=== PATIENT | female | born 1955 | race Caucasian/White ===

== ENCOUNTER 2016-07-31 16:41 | Emergency (ER) | payer OTHER ==
[2016-04-22 10:22] VITALS: BMI 35.1
[~2016-07-31 16:41] MED LIST: BUPROPION HCL150 M1 PO; KLOR-CON 1010 MEQ PO; LASIX40 MG PO; PHENERGAN25 M1 PO; ZESTORETIC 10/11 TAB PO; ZOFRAN8 MG PO
== END 2016-07-31 20:11 | disposition left against medical advice (07) ==
LOC: D.ER 16:41
DX: M79.641 Pain in right hand (principal)

== ENCOUNTER 2019-07-05 07:59 | Inpatient (IN) | payer OTHER ==
[~2019-07-05] VITALS: Ht 149.9 cm; Wt 92.3 kg
--- NOTE | ~2019-07-05 | HEMODYNAMI ---
PATIENT:REAGAN MCKENZIE MEDICAL RECORD: [id number] : 59 LOCATION:[facility] ADMISSION DATE: 07/05/19 Generatedon:07/05/201910:22 Patient name: REAGAN MCKENZIE Patient #: [id number] : 1955 Date of study: 07/05/2019 Page: Of Hemodynamic Procedure Report Patient Data Patient Demographics First Name: REAGAN Gender: Female Last Name: JONAH : 1955 Middle Initial: ERICK Age: 63 year(s) Patient #: [id number] Race: Unknown SSN: [id number] Additional ID: [id number] Contact details [address]: [address] [place] [address] State: [place] City: [place] Zip code: [address] Past Medical History Allergies Allergen Reaction Date Comments Reported Other allergy 07/05/2019 chantix, tramadol Admission Admission Data Admission Date: 07/05/2019 Admission Time: 7:59 Arrival Date: 07/05/2019 Arrival Time: 0:00 Admit Source: Other Insurance Payor: Private health insurance [facility] #: [id number] Height (in.): 59 BSA: 1.87 (m2) Height (cm.): 149.86 BMI: 42.01 (kg/m2) Weight (lbs.): 208 Weight (kg.): 94.35 Lab Results Lab Result Date: 07/05/2019 Lab Result Time: 0:00 Biochemistry Name Units Result Min Max BUN mg/dl 28 --(----)-* 7 18 Creatinine mg/dl 1.2 --(---*)-- 0.6 1.3 eGFR ml/min 48 *-(----)-- 90 120 NONAFRICAN CBC Name Units Result Min Max Hemoglobin g/dl 13.8 --(*---)-- 13.5 17.5 Procedure Procedure Types Cath Procedure Diagnostic Procedure LHC LHC w/Coronaries FFR/IVUS FFR Initial Sedation Charges Moderate Sedation up to 30 minutes PCI Procedure Coronary Stent Coronary Stent Initial x2 Hemochron ACT Test Procedure Description Procedure Date Procedure Date: 07/05/2019 Procedure Start Time: 9:54 Procedure End Time: 10:17 Procedure Staff Name Function Jonel Garcia MD Performing Physician Binta Cohen RT Monitor Talia Ryan RT Scrub Aren Sainz RN Nurse Indication Chest pain Procedure Data Cath Procedure Fluoroscopy Diagnostic fluoroscopy Total fluoroscopy Time: 4.6 time: 4.6 min min Diagnostic fluoroscopy Total fluoroscopy dose: 913 dose: 913 mGy mGy Contrast Material Contrast Material Type Amount (ml) Isovue 300 101 Entry Location Entry Primary Successful Side Size Upsize Upsize Entry Closure Succes sful Closure Location (Fr) 1 (Fr) 2 (Fr) Remarks Device Remarks Femoral Right 5 Fr 7 Fr Exoseal artery Short Estimated blood loss: 10 ml Diagnostic catheters Device Type Used For End Catheter Placement MULTIPACK Pigtail 5 Fr Procedure catheter MULTIPACK JL 4.0 5Fr Procedure catheter MULTIPACK 3DRC 5Fr Procedure catheter Procedure Complications No complications Procedure Medications Medication Administration Route Dosage Oxygen etCO2 Nasal cannula 2 l/min Lidocaine 2% added to field 20 Heparin Flush Bag added to field 2 bags (1000units/500ml NS) 0.9% NaCl I.V. bolus 500 ml Versed I.V. 1 mg Fentanyl I.V. 50 mcg Versed I.V. 1 mg Fentanyl I.V. 50 mcg Heparin Bolus I.V. 4000 units Integrilin (Bolus I.V. 8.5 ml 2mg/ml) Plavix P.O. 600 mg 0.9% NaCl I.V. bolus 250 ml Hemodynamics Rest BSA: 1.87 (m2) HGB: 13.8 (g/dl) O2 Consumption: Estimated: 165.24 (ml/min) O2 Co nsumption indexed: Estimated:88.36 (ml/min/m) Heart Rate: 54 (bpm) Gradients Valve Time Site Site Mean SEP/DFP Peak To Heart Use 1 2 (mmHg) (sec/min) Peak Rate (mmHg) (bpm) Aortic 9:56 LV AO 60 Snapshots Pre Cath Intra NCS Post Cath Vital Signs Time Heart Resp SPO2 etCO2 NIBP Rhythm Pain Sedation Rate (ipm) (%) (mmHg) (mmHg) Status Level (bpm) 9:41:35 55 12 95 36.2 99/65(78) NSR 0 (11) 10(A) , No pain 9:44:41 54 17 97 3.7 102/66(84) NSR 0 (11) 10(A) , No pain 9:48:39 54 14 97 19 100/64(79) NSR 0 (11) 10(A) , No pain 9:52:38 55 15 98 34.7 97/57(73) NSR 0 (11) 9(A) , No pain 9:56:40 53 12 99 0 98/52(77) NSR 0 (11) 9(A) , No pain 10:00:44 54 13 97 27.2 93/45(79) NSR 0 (11) 9(A) , No pain 10:04:46 53 11 97 43 80/46(66) NSR 0 (11) 9(A) , No pain 10:08:43 55 12 98 43.1 81/42(60) NSR 0 (11) 9(A) , No pain 10:12:41 56 4 98 0 96/44(70) NSR 0 (11) 9(A) , No pain 10:17:23 61 21 98 43.8 114/71(90) NSR 0 (11) 10(A) , No pain Medications Time Medication Route Dose Verified Delivered Reason Notes Effectiveness by by 9:31:50 Oxygen etCO2 2 Jonel Buffie used for Nasal l/min Jose Sainz RN procedure cannula 9:31:56 Lidocaine 2% added 20ml Jonel Remy for local to vial Jose Garcia MD anesthetic field 9:32:02 Heparin Flush added 2 Jonel Jonel used for Bag to bags Jose Garcia MD procedure (1000units/500ml field NS) 9:32:11 0.9% NaCl I.V. 500 Jonel Buffie Per physician bolus ml Jose Sainz RN 9:49:58 Versed I.V. 1 mg Jonel Buffie for sedation Jose Sainz RN 9:50:04 Fentanyl I.V. 50 Jonel Buffie for sedation mcg Jose Sainz RN 9:54:50 Versed I.V. 1 mg Jonel Buffie for sedation Jose Sainz RN 9:54:53 Fentanyl I.V. 50 Jonel Buffie for sedation mcg Jose Sainz RN 10:02:27 Heparin Bolus I.V. 4000 Jonel Younger for verif ied units Jose Sainz RN anticoagulation with dr garcia 10:05:27 Integrilin I.V. 8.5 Jonel Younger for waste d (Bolus 2mg/ml) ml Jose Sainz RN antiplatelet 1.5 ml therapy of vial 10:17:21 Plavix P.O. 600 Jonel Younger for mg Jose Sainz RN antiplatelet therapy 10:17:49 0.9% NaCl I.V. 250 Jonel Younger Per physician bolus ml Jose Sainz RN Procedure Log Time Note 8:59:33 Admit Source: Other 8:59:35 Arrival Date: 07/05/2019 12:00:00 AM 8:59:51 Insurance Payor : Private health insurance 9:00:05 Patient Height : 59 inches 9:00:08 Patient Weight : 208 lbs 9:00:21 Diagnostic Cath Status : Elective 9:00:25 PCI Cath Status : Elective 9:01:03 Indication : Chest pain 9:01:19 Procedure Status Elective Heart Cath (OP). 9:31:50 Oxygen 2 l/min etCO2 Nasal cannula was administered by Aren Sainz RN; used for procedure; Verbal order read back and verified. 9:31:56 Lidocaine 2% 20ml vial added to field was administered by Jonel Garcia MD; for local anesthetic; Verbal order read back and verified. 9:32:02 Heparin Flush Bag (1000units/500ml NS) 2 bags added to field was administered by Jonel Garcia MD; used for procedure; Verbal order read back and verified. 9:32:11 0.9% NaCl 500 ml I.V. bolus was administered by Aren Sainz RN; Per physician; Verbal order read back and verified. 9:34:00 Vital chart was started 9:35:10 Aren Sainz RN sent for patient. Start room use. 9:35:12 Time tracking: Regular hours (M-F 7:00 - 5:00) 9:35:19 Plan of Care:Hemodynamics will remain stable., Cardiac rhythm will remain stable., Comfort level will be maintained., Respiratory function will remain adequate., Patient/ family verbilizes understanding of procedure., Procedure tolerated without complication., Recovers from procedure without complications.. 9:35:24 Patient received from Pre/Post Procedure Room to CCL 2 Alert and oriented. Tansferred to table in Supine position. 9:35:25 Warm blankets applied, and teja hugger turned on for patient comfort. 9:35:25 Correct patient and procedure confirmed by team. 9:35:26 ECG and BP/O2 sat monitors applied to patient. 9:35:27 Baseline sample Acquired. 9:35:35 Rhythm: sinus rhythm 9:35:37 Full Disclosure recording started 9:36:01 H&P Date Dictated: 06/14/2019 Within 30 days and on chart., H&P Addendum completed by physician on day of procedure. (MUST COMPLETE FOR ALL OUTPATIENTS). 9:36:02 Pre-procedure instructions explained to patient. 9:36:04 Family in waiting room. 9:36:05 Patient NPO since Midnight. 9:36:45 Patient allergic to Other allergychantix, tramadol 9:36:51 Is the patient allergic to Iodine/contrast media? No. 9:36:52 Was the patient premedicated? Yes 9:36:54 Is patient on blood thinner?No 9:37:04 Patient diabetic? No. 9:37:09 Snore? Yes 9:37:10 Sleep apnea? No 9:37:18 Dentures? No ? 9:37:22 Patient pain scale 0/10 ?. 9:37:28 IV patent on arrival in left forearm with 0.9% NaCl at KVO. 9:40:10 Lab Result : eGFR NONAFRICAN 48 ml/min 9:40:10 Lab Result : Hemoglobin 13.8 g/dl 9:40:10 Lab Result : BUN 28 mg/dl 9:40:10 Lab Result : Creatinine 1.2 mg/dl 9:40:25 3a) 45-59 Moderately reduced kidney function. 9:41:01 Maximum allowable contrast dose (3.7 X eGFR X 0.75)133 ml. 9:41:17 Lab results completed and on chart. 9:41:42 Stress Test: yes; abnormal multi 9:41:57 Right groin area was prepped with chlora-prep and draped in sterile fashion 9:41:58 Alarms reviewed by R. N. 9:41:58 Sharps counted by scrub and verified by R.N. 9:48:56 Physician arrived 9:48:57 --------ALL STOP TIME OUT------ 9:48:58 Final Timeout: patient, procedure, and site verified with staff and physician. All members of the team are in agreement. 9:48:59 Right groin site verified by team. 9:49:03 Fire Safety Assessment: A--An alcohol-based skin anteseptic being used preoperatively., C--Open oxygen or nitrous oxide is being used., D--An ESU, laser, or fiber-optic light is being used. 9:49:08 Physical assessment completed. ASA score P 3 - A patient with severe systemic disease as per Jonel Garcia MD. 9:49:14 Sedation plan: IV Moderate Sedation Medication:Versed, Fentanyl 9:49:19 Use device set Femoral Dx 9:49:58 Versed 1 mg I.V. was administered by Aren Sainz RN; for sedation; Verbal order read back and verified. 9:50:04 Fentanyl 50 mcg I.V. was administered by Aren Sainz RN; for sedation; Verbal order read back and verified. 9:51:04 Zero performed for pressure channel P1 9:51:09 Zero performed for pressure channel P1 9:54:26 Procedure started. 9:54:40 Local anesthetic to right femoral artery with Lidocaine 2% by Jonel Garcia MD.INITIAL ACCESS ONLY 9:54:41 ACIST Syringe (22757) opened to sterile field. 9:54:42 Bag Decanter (2002) opened to sterile field. 9:54:42 Medline Cath Pack ([id number]) opened to sterile field. 9:54:44 ACIST Hand Control (35220) opened to sterile field. 9:54:44 ACIST Manifold (23754) opened to sterile field. 9:54:44 DIAGNOSTIC Multipack 5Fr catheter set ([id number]) opened to sterile field. 9:54:47 SHEATH 5FR [place] (RTO173) opened to sterile field. 9:54:47 EMERALD Guide Wire (502-604) opened to sterile field. 9:54:50 Versed 1 mg I.V. was administered by Aren Sainz RN; for sedation; Verbal order read back and verified. 9:54:53 Fentanyl 50 mcg I.V. was administered by Aren Sainz RN; for sedation; Verbal order read back and verified. 9:55:14 A 5 Fr sheath was inserted into the Right Femoral artery 9:55:22 A MULTIPACK Pigtail 5 Fr catheter was advanced over the wire and used for Procedure. 9:56:25 EF : 60 % 9:56:29 LV angiography performed. 9:56:30 Catheter removed. 9:56:37 A MULTIPACK JL 4.0 5Fr catheter was advanced over the wire and used for Procedure. 9:56:49 LCA angiography performed. 9:57:43 Catheter removed. 9:57:54 A MULTIPACK 3DRC 5Fr catheter was advanced over the wire and used for Procedure. 9:58:17 RCA angiography performed. 9:59:15 GUIDE 7FR AR 2.0 SH catheter ([id number]) opened to sterile field. 9:59:16 SHEATH 7FR [place] (LZR213) opened to sterile field. 9:59:18 INFLATOR Merit BasixCompak (HM0677) opened to sterile field. 9:59:19 [place] Verrata Plus pressure wire (96039Y) opened to sterile field. 9:59:35 Catheter removed. 9:59:36 Proceeding to intervention. 9:59:48 Sheath upsized to a 7 Fr Short. 10:00:00 7 Fr AR2SH guide catheter was inserted over the wire 10:00:52 ifr wire advanced. 10:01:10 Wire advanced across lesion. 10:02:27 Heparin Bolus 4000 units I.V. was administered by Aren Sainz RN; for anticoagulation; verified with dr garcia Verbal order read back and verified. 10:02:39 pRCA lesion measured at .81 with IFR 10:05:10 Place stent Inflation Number: 1 A MYLES RX 3.0 x 30 stent ([id number]) was prepped and advanced across the Prox RCA 75. The stent was deployed at 17 YEN for 0:07 (min:sec) 0. 10:05:27 Integrilin (Bolus 2mg/ml) 8.5 ml I.V. was administered by Aren Sainz RN; for antiplatelet therapy; wasted 1.5 ml of vial Verbal order read back and verified. 10:05:44 Wire removed. 10:05:44 Guide catheter removed. 10:05:59 7 Fr EBU3.5 guide catheter was inserted over the wire 10:06:18 CHOICE PT Extra Support 182cm wire ([id number]) opened to sterile field. 10:07:02 GUIDE 7FR EBU 3.5 catheter ([id number]) opened to sterile field. 10:07:09 Wire advanced across lesion. 10:08:47 Inflate balloon Inflation number: 1 A EUPHORA 2.0 x 20 Balloon ([id number]) was prepped and advanced across the Mid LAD , then inflated to 15 YEN for 0:11 (min:sec) . 10:08:55 Inflation number: 2 The EUPHORA 2.0 x 20 Balloon ([id number]) was reinflated across the Mid LAD , to 17 YEN for 0:05 (min:sec) . 10:09:59 Balloon removed over the wire. 10:10:17 Place stent Inflation Number: 3 A MYLES RX 2.0 x 26 stent ([id number]) was prepped and advanced across the Mid LAD 90. The stent was deployed at 15 YEN for 0:09 (min:sec) . 10:11:15 Stent catheter was removed intact over wire. 10:11:35 Place stent Inflation Number: 2 A MYLES RX 2.5 x 22 stent ([id number]) was prepped and advanced across the Prox RCA 90. The stent was deployed at 17 YEN for 0:06 (min:sec) . 10:13:22 Stent catheter was removed intact over wire. 10:13:23 Wire removed. 10:13:23 Guide catheter removed. 10:13:31 EXOSEAL 7Fr (EX700) opened to sterile field. 10:14:14 Sheath removed intact; hemostasis achieved with Exoseal to the Right Femoral artery. 10:14:16 Procedure ended.(Physican Out) 10:14:27 Fluoroscopy time 04.60 minutes. 10:14:31 Fluoroscopy dose: 913 mGy 10:14:31 Flurop Dose total: 913 10:14:35 Dose Area Product 66687 mGy/cm. 10:14:39 Contrast amount:Isovue 300 101ml. 10:14:41 Maximum allowable dose exceeded? No. 10:14:43 Insertion/operative site no bleeding no hematoma. 10:14:47 Post-op/insertion site Right Femoral artery dressed using a 4 x 4 and Tegaderm. 10:14:49 Post Procedure Pulses reassessed and unchanged 10:14:55 Post-procedure physical assessment completed. ASA score P 3 - A patient with severe systemic disease as per Jonel Garcia MD. 10:14:58 Post procedure rhythm: unchanged. 10:15:01 Estimated blood loss: 10 ml 10:15:03 Post procedure instruction explained to patient.Patient verbalizes understanding. 10:15:43 Procedure type changed to Cath procedure, Diagnostic procedure, [facility], [facility] w/Coronaries, FFR/IVUS, FFR Initial, Sedation Charges, Moderate Sedation up to 30 minutes, PCI procedure, Coronary Stent, Coronary Stent Initial x2, Hemochron ACT Test 10:15:44 Procedure and supply charges have been captured, reviewed, submitted and are correct. 10:16:13 ACT drawn and resulted at 249 seconds. (normal therapeutic range 180-240 seconds). 10:17:11 Procedure Complication : No complications 10:17:21 Plavix 600 mg P.O. was administered by Aren Sainz RN; for antiplatelet therapy; Verbal order read back and verified. 10:17:26 Vital chart was stopped 10:17:30 [facility] Findings: MVD- PCI performed (see procedure note) 10:17:33 Operative report dictated upon procedure completion. 10:17:33 See physician's report for complete and final results. 10:17:36 Report given to Pre/Post Procedure Room. 10:17:39 Patient transfered to Pre/Post Procedure Room with Stretcher. 10:17:41 Procedure ended. 10:17:41 Full Disclosure recording stopped 10:17:49 0.9% NaCl 250 ml I.V. bolus was administered by Aren Sainz RN; Per physician; Verbal order read back and verified. 10:17:54 End room use (Document Last) 10:18:22 FEMSTOP Gold ([id number]) opened to sterile field. 10:20:05 Fem stop placed on right illiac. Hematoma/bleeding 10:20:26 ACC-PCI Only Patient was given prescriptions, or instructed by Jonel Garcia MD to start/continue the following medications upon discharge: Plavix Intervention Summary Intervention Notes Time ActionType Lesion and Equipment Used Action# Pressure Duration Attributes 10:05:10 Place stent Prox RCA MYLES RX 3.0 x 1 17 00:07 30 stent ([id number]) 10:08:47 Inflate Mid LAD EUPHORA 2.0 x 1 15 00:11 balloon 20 Balloon ([id number]) 10:08:55 Reinflate Mid LAD EUPHORA 2.0 x 2 17 00:05 balloon 20 Balloon ([id number]) 10:10:17 Place stent Mid LAD MYLES RX 2.0 x 3 15 00:09 26 stent ([id number]) 10:11:35 Place stent Prox RCA MYLES RX 2.5 x 2 17 00:06 22 stent ([id number]) Device Usage Item Name Manufacture Quantity Catalog Number Hospital Part Current Minimal Lot# / Charge Number Stock Stock Serial# Code ACIST Syringe Acist 1 57397 209438 601451 516933 20 (57383) [employer] Systems Inc Bag Decanter Microtek 1 585353 96279 369378 5 () Medical Inc. Medline Cath Medline 1 [id number] 714371 03614 163156 5 Pack ([id number]) ACIST Hand Acist 1 33543 086975 763397 549267 5 Control Medical (85382) Systems Inc ACIST Manifold Acist 1 82568 836871 948321 615832 5 (62461) [employer] Systems Inc DIAGNOSTIC Cardinal 1 CC1694 287536 61802 493055 30 Multipack 5Fr Health catheter set (VE2193) SHEATH 5FR Terumo 1 MLY595 043130 454708 827548 5 [place] (NBK692) EMERALD Guide Cardinal 1 502-455 686591 635611 442806 5 Wire (502-455) Health MULTIPACK Cardinal 1 895569 5 Pigtail 5 Fr Health catheter MULTIPACK JL Cardinal 1 770487 5 4.0 5Fr Health catheter MULTIPACK 3DRC Cardinal 1 203592 5 5Fr catheter Health GUIDE 7FR AR Medtronic 1 [id number] 915586 905570 299635 0 2.0 SH catheter ([id number]) SHEATH 7FR Terumo 1 PDZ006 324887 805922 239178 5 [place] (EPP135) INFLATOR Merit Merit 1 VU5989 433485 038601 701438 15 NexJ SystemsmtDownstream (ZM7279) Can[place] Can[place] 1 90292B 795172 752865614 864352 5 Verrata Plus pressure wire (33778T) MYLES RX 3.0 x Medtronic 1 [id number] 936729 3283325 875504 5 [id number] 30 stent ([id number]) CHOICE PT [place] 1 [id number] 939144 919424 369732 5 Extra Support Scientific 182cm wire ([id number]) GUIDE 7FR EBU Medtronic 1 [id number] 247584 306654 352177 0 3.5 catheter ([id number]) EUPHORA 2.0 x Medtronic 1 [id number] 631639 201010 135066 5 [id number] 20 Balloon ([id number]) MYLES RX 2.0 x Medtronic 1 [id number] 911453 5705308 017975 5 [id number] 26 stent ([id number]) MYLES RX 2.5 x Medtronic 1 [id number] 583293 0649777 519139 5 [id number] 22 stent ([id number]) EXOSEAL 7Fr Cardinal 1 EX700 723400 338273 949972 5 (EX700) Health FEMSTOP Gold [facility] Dariusz 1 [id number] 659988 047801 916181 5 ([id number]) Signature Audit [place] Stage Time Signature Unsigned Intra-Procedure 07/05/2019 Binta Cohen 10:20:56 AM RT(R) Intra-Procedure 07/05/2019 Aren Sainz RN 10:21:40 AM Intra-Procedure 07/05/2019 Jonel Garcia 10:21:59 AM Signatures Performing Physician : Signature : Jonel Garcia MD Date : Time : Monitor : Binta Cohen Signature : RT Date : Time : Nurse : Buffie Sainz RN Signature : Date : Time : [address] [place] [address]
[2019-07-05] MEDS ORDERED: ALBUTEROL SULF8.5 GM INH (08:28)
[2019-07-05] MEDS ORDERED: BACLOFEN10 MG PO (08:28)
[2019-07-05] MEDS ORDERED: HYDROCODON-ACE1 EA10 PO (08:28)
[2019-07-05] MEDS ORDERED: LEXAPRO20 MG PO (08:29)
[2019-07-05] MEDS ORDERED: LISINOPRIL10 MG PO (08:29)
[2019-07-05] MEDS ORDERED: TRAZODONE HCL150 MG PO (08:29)
[2019-07-05] MEDS ORDERED: FUROSEMIDE40 MG PO (08:29)
[2019-07-05 08:45] VITALS: BP 126/51; BMI 41.1
[2019-07-05 09:05] LABS: BASOPHILS 0.3 % (0-2); EOSINOPHILS 2.1 % (0-7); HEMATOCRIT 41.9 % (36.0-48.0); HEMOGLOBIN 13.8 g/dL (12-16); IMMATURE GRANULOCYTES 0.2 % (0-5); MCH 31.8 pg (26.0-34.0); MCHC 32.9 g/dL (31.0-37.0); MCV 96.5 fL (80.0-100.0); MEAN PLATELET VOLUME 10.6 fL (7.4-10.4); MONOCYTES 9.6 % (2-11); NEUTROPHILS 59.8 % (40-80); PLATELET COUNT 225 10x3/uL (130-400); RBC 4.34 10x6/uL (4.00-5.40); RDW 13.1 % (11.5-14.5); WBC 6.2 10x3/uL (4.8-10.8)
[2019-07-05 09:10] LABS: ANION GAP 12.3 mmol/L (8-16); CALCIUM 9.1 mg/dL (8.5-10.1); CARBON DIOXIDE 23.3 mmol/L (21.0-32.0); CHOL - HDL RATIO 2.5 ratio (2.3-4.1); CREATININE - SERUM 1.2 mg/dL (0.6-1.3); LDL-HDL RATIO 1.3 ratio (1.5-3.5); POTASSIUM - SERUM 4.6 mmol/L (3.5-5.1)
--- NOTE | 2019-07-05 10:34 | NUR ---
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 MONITORING INITIATED. FEMSTOP IN PLACE TO R GROIN, NO S/S BLEEDING OR HEMATOMA. RLE WARM, FOOT WARM, TOES WIGGLE. PULSE VIA DOPPLER, MARKED. BP 129/57, HR SB 54, RR 12, SAT 100% 2LNC. FAMILY AT BEDSIDE.
[2019-07-05] MEDS ORDERED: ASPIRIN81 MG PO (10:51)
[2019-07-05] MEDS ORDERED: PLAVIX75 MG PO (10:52)
--- NOTE | 2019-07-05 11:01 | NUR ---
R GROIN FEMSTOP IN PLACE, 113MMHG, NO S/S BLEEDING OR HEMATOMA. RLE WARM, PINK. WIGGLES TOES. PULSE DOPPLER. SB 553, BP 114/76, SAT 100% ON 2LNC. RR 15. FAMIILY AT BEDSIDE.
[2019-07-05] MEDS ORDERED: PRAVACHOL40 MG PO (11:23)
--- NOTE | 2019-07-05 11:30 | NUR ---
R GROIN FEMSTOP AT 80MMHG NOW. PULSE WITH DOPPLER RLE. UNABLE TO VOID ON BEDPAN. WILL PLACE PUREWICK FOR PT COMFORT. BP 102/66, SR 65, SAT 96% 2LNC.
--- NOTE | 2019-07-05 11:45 | NUR ---
PUREWICK PLACED FOR PT COMFORT. STILL UNABLE TO EMPTY BLADDER BUT IS MORE COMFORTABLE THAN BEDPAN SHE ATTEMPTS. BP 116/74, SR 62, SAT 100% 2LNC.
--- NOTE | 2019-07-05 12:15 | NUR ---
PT C/O BACK AND RLQ ABD PAIN. CALLED LIBBY MARTE LICENSED PRACTICAL NURSE CLINIC NURSE. PT ASSSESSED, GETTING STAT H/H AND CALLING DR LOPEZ.
[2019-07-05 12:36] LABS: HEMATOCRIT 43.3 % (36.0-48.0); HEMOGLOBIN 14.4 g/dL (12-16)
--- NOTE | 2019-07-05 12:40 | NUR ---
ORDERS FOR H/H, TYPE AND MATCH, ADMISSION, WALL CATH, AND CT ABD/PELVIS REC. WALL CATH PLACED W IMMEDIATE RETURN OF PALE CLEAR YELLOW URINE.
--- NOTE | 2019-07-05 12:46 | NUR ---
AFTER WALL PLACED AND BLADDER DRAINED, PT STATES SHE IS MORE COMFORTABLE BUT SHE IS STILL VERY TENDER TO PALPATION RLQ. CT CALLED, PT IS NEXT IN LINE AFTER CURRENT PT ON TABLE. FAMILY AT BEDSIDE, UPDATED ON PT CONDITION AND PLAN OF CARE.
--- NOTE | 2019-07-05 12:54 | NUR ---
RLQ NOT TENDER PER PT WHEN PALPATED. HR 58, BP 118/76, SAT 99% ON 2LNC. FEMSTOP AT 92MMHG. AWAITING CT.
--- NOTE | 2019-07-05 13:15 | NUR ---
TO CT VIA STRETCHER
--- NOTE | 2019-07-05 13:33 | NUR ---
BACK FROM CT. AWAIT RAD REPORT.
--- NOTE | 2019-07-05 13:35 | NUR ---
BP 100/54, HR SB 56, SAT 96% RA R GROIN FEMSTOP, NO OBVIOUS BLEEDING. RLQ MUCH LESS TENDER TO PALPATION PER PT, SINCE PLACEMENT OF WALL. NOW C/O BACK PAIN PRIMARILY, WHICH SHE SAYS IS CHRONIC.
--- NOTE | 2019-07-05 14:00 | NUR ---
FEMSTOP OFF, DRESSING APPLIED TO R GROIN STICK SITE. PT HAS SKIN IRRITATION W BLEEDING TO SKIN FOLD AT GROIN AND ABOVE GROIN UNDER PANNICULUS. CLEANSED AND APPLIED BARRIER SPRAY. BP 95/62, SB 52. R GROIN WITHOUT S/S BLEEDING OR HEMATOMA. WITHOUT PAIN TO PALPATION RLQ.
--- NOTE | 2019-07-05 14:30 | NUR ---
COMMUNICATED VERBAL REPORT ON CT TO DR LOPEZ THRU HIS NURSE BURAK FERREIRA. WILL PROCEED W ADMISSION OVERNIGHT. ADMINISTRATIVE JOB TITLES [facility] CONTACTED, NO BED AVAILABLE YET ON PCU. FAMILY AND PT UPDATED ON PLAN OF CARE. R GROIN REMAINS STABLE, DRESSING IS CDI, NO S/S ACTIVE BLEEDING, UNABLE TO PALPATE HEMATOMA. RLQ MINIMALLY TENDER TO PALP. TOLERATING COFFEE AND SANDWICH. NIECES AT BEDSIDE.
--- NOTE | 2019-07-05 15:33 | NUR ---
R GROIN REMAINS SOFT, DRESSING CDI, NO PALPABLE HEMATOMA, NO SIGN OF ACTIVE BLEEDING. RLQ AGAIN TENDER TO PALPATION. FAMILY AT BEDSIDE. BP 111/74, SB 58. CALLED REPORT TO ALVARO ON MED[facility]. ROOM IS NOT YET READY, FLOOR WILL CALL WHEN IT IS CLEAN AND READY.
--- NOTE | 2019-07-05 15:40 | NUR ---
EMPTIED WALL, TOTAL OF 1400ML URINE OUT
--- NOTE | 2019-07-05 15:45 | NUR ---
PT ARRIVED TO FLOOR VIA STRECHER, AMBULATED TO BED WITH STEADY GAIT. WALL NOTED WITH CLEAR, YELLOW URINE. TENDERNESS TO RLQ. SOFT UPON PALPATION. FAMILY AT BEDSIDE. ORIENTED TO ROOM. CALL LIGHT WITHIN REACH. DRESSING TO RIGHT GROIN, CDI. PEDAL PULSES PALPABLE. WATER RECIEVED PER REQUEST. BED IN LOWEST POSISTION. WILL CONTINUE TO MONITOR.
--- NOTE | 2019-07-05 16:10 | NUR ---
NOTIFIED ROOM READY. PT TRANSPORTED VIA STRETCHER TO 2111. AMBULATED FROM DOORWAY TO BED. REC NURSE MARY IN ROOM. GROIN ASSESSED W HER. NO CHANGES. DRESSING REMAINS CDI, UNABLE TO PALPATE HEMATOMA. NO S/S ACTIVE BLEEDING. RLQ REMAINS TENDER TO PALPATION. PT'S NIECES ALSO IN NEW ROOM. PT HAS ALL BELONGINGS.
[2019-07-05 16:34] LABS: BASOPHILS 0.1 % (0-2); EOSINOPHILS 0.4 % (0-7); HEMATOCRIT 41.1 % (36.0-48.0); HEMOGLOBIN 13.4 g/dL (12-16); IMMATURE GRANULOCYTES 0.1 % (0-5); LYMPHOCYTES 14.4 % (15-50); MCH 31.6 pg (26.0-34.0); MCHC 32.6 g/dL (31.0-37.0); MCV 96.9 fL (80.0-100.0); MEAN PLATELET VOLUME 10.3 fL (7.4-10.4); MONOCYTES 7.4 % (2-11); NEUTROPHILS 77.6 % (40-80); PLATELET COUNT 219 10x3/uL (130-400); RBC 4.24 10x6/uL (4.00-5.40); RDW 13.1 % (11.5-14.5)
[2019-07-05 16:35] VITALS: BP 108/42; Ht 149.9 cm; Wt 92.3 kg
[2019-07-05 17:01] LABS: WBC 9.1 10x3/uL (4.8-10.8)
--- NOTE | 2019-07-05 19:00 | NUR ---
REPORT RECEIVED, WILL CONTINUE POC. PATIENT IS AAOX4, LYING IN SEMI-FOWLERS POSITION. NO S/S OF DISTRESS OBSERVED, RR EVEN AND UNLABORED ON ROOM AIR. PIV TO LT FA, PATENT, SL, DRSG C/D/I. DRSG TO RT GROIN, C/D/I INTACT, SMALL KNOWN HEMATOMA, NO CHANGE. F/C DRAINING CLEAR YELLOW URINE BY GRAVITY TO LT SIDE OF BED. PATIENT DENIES NEEDS AT THIS TIME. BED LOCKED AND LOWERED. WILL CTM.
[2019-07-05 20:00] VITALS: BP 104/56
[2019-07-06] VITALS: BP 118/68
--- NOTE | 2019-07-06 00:01 | NUR ---
CLAMPED PT F/C TO INITIATE BLADDER TRAINING. NO ORDER YET TO D/C. PERIPHERAL PULSES PALPATED, RT FOOT 2+ PITTING EDEMA WITH WEAK PULSES, LT FOOT PULSE PRESENT, WEAK. PATIENT DENIES NEEDS AT THIS TIME. CL IN REACH, BED LOCKED AND LOWERED. WILL CTM.
--- NOTE | 2019-07-06 01:41 | NUR ---
I have reviewed this patient and I concur with the Shift Assessment completed by the Licensed Practical Nurse today this shift.
[2019-07-06 04:00] VITALS: BP 101/50
[2019-07-06 05:56] LABS: BASOPHILS 0.3 % (0-2); EOSINOPHILS 2.4 % (0-7); HEMATOCRIT 38.2 % (36.0-48.0); HEMOGLOBIN 12.4 g/dL (12-16); IMMATURE GRANULOCYTES 0.1 % (0-5); LYMPHOCYTES 26.9 % (15-50); MCH 31.4 pg (26.0-34.0); MCHC 32.5 g/dL (31.0-37.0); MCV 96.7 fL (80.0-100.0); MEAN PLATELET VOLUME 10.6 fL (7.4-10.4); MONOCYTES 12.2 % (2-11); NEUTROPHILS 58.1 % (40-80); PLATELET COUNT 199 10x3/uL (130-400); RBC 3.95 10x6/uL (4.00-5.40); RDW 13.2 % (11.5-14.5); WBC 7.6 10x3/uL (4.8-10.8)
--- NOTE | 2019-07-06 09:35 | NUR ---
WALL REMOVED. PT VOIDED TWICE PRIOR TO DISCHARGE. NO RETENTION NOTED. PIV REMOVED WITH CATHETER TIP FULLY INTACT. PT SIGNED PROPER DISCHARGE INSTRUCTIONS AND REMOVED ALL VALUABLES FROM THE ROOM. TELEMETRY REMOVED AND RETURNED.
--- NOTE | 2019-07-06 16:48 | OP ---
PATIENT NAME: REAGAN MCKENZIE MEDICAL RECORD: [id number] :59 LOCATION:D.M2 D.2111 ADMISSION DATE:07/05/19 SURGEON: TAN LOPEZ MD DATE OF OPERATION: 07/05/2019 PROCEDURES: 1. PTCA stent LAD. 2. PTCA stent RCA. 3. IFR RCA. 4. Left heart catheterization. 5. Selective coronary angiography. 6. Left ventriculogram. INDICATION: Angina, coronary artery disease, abnormal nuclear stress test. DESCRIPTION OF PROCEDURE: After informed consent was obtained and after a detailed description of the risks, benefits as well as alternative therapies, the patient elected to proceed with angiogram and angioplasty. The right femoral area was prepped and draped in normal sterile fashion. Right femoral artery was cannulated via modified Seldinger technique with placement of 7-Czech sheath. All catheters exchanged through this sheath. FINDINGS: Left ventriculogram was performed in a standard 30-degree VASQUES view, reveals good cardiac wall motion, ejection fraction estimated at 60%. SELECTIVE CORONARY ANGIOGRAPHY: 1. Left main is with no significant angiographic disease. 2. Left anterior descending has 90% stenosis throughout the mid vessel. 3. Left circumflex has moderate irregularities, but no flow-limiting stenosis. 4. Right coronary has 75% stenosis proximally. An IFR is abnormal. PTCA STENT OF THE RCA: The stent used was a 3.0 x 30 mm Elliott. Result was 0% residual stenosis. PTCA STENT OF THE LAD: Stents used were 2.0 x 26 and 2.5 x 22, both Bob stents. Result was 0% residual stenosis. OVERALL IMPRESSION: Successful percutaneous transluminal coronary angioplasty stent of the left anterior descending and right coronary artery, both going from 75% to 90% initial stenosis to 0% residual. TRANSINT:[id number] Voice Confirmation ID: [id number] DOCUMENT ID: [id number] TAN LOPEZ MD at 1648 CC: [id number] DICTATION DATE: 07/05/19 1023 STRAIGHT CUTTER: 07/05/19 1400 DIS IN 07/06/19 [place] [address]
--- NOTE | 2019-07-07 16:42 | DS ---
PATIENT:REAGAN SHIRLEY :59 MEDICAL RECORD: [id number] DISCHARGE SUMMARY ADMISSION DATE: 07/05/19 DISCHARGE DATE: 07/06/19 DATE OF DISCHARGE: 07/06/2019. DIAGNOSES: 1. Peripheral vascular disease. 2. Percutaneous transluminal angioplasty stent right superficial femoral artery. 3. Left groin hematoma. 4. Hypertension. 5. Hyperlipidemia. HOSPITAL COURSE: Mrs. Shirley underwent PTCA stent of the right SFA for claudication. Unfortunately, had a mild hematoma developed on the left groin, was kept overnight. Hemoglobin remained stable, hematoma stabilized. No further bleeding. Discharged home to follow up with [facility] in 1 week. TRANSINT:[id number] Voice Confirmation ID: [id number] DOCUMENT ID: [id number] TAN LOPEZ MD at 1642 CC: [id number] DICTATION DATE: 07/06/19 1247 ASSORTER: 07/07/19 0641 DIS IN 07/06/19 [id number] [place] [address]
== END 2019-07-06 09:36 | disposition home or self-care (01) | DRG 247 ==
LOC: D.CATH 07:59 → D.M2 12:30 → D.CATH 16:00 → D.M2 16:00 → D.CATH 07-06 09:36
PROVIDERS: ADMIT Internal Medicine Interventional Cardiology; ATTEND Internal Medicine Interventional Cardiology
PROC: 027135Z Dilation of Coronary Artery, Two Arteries with Two Drug-eluting Intraluminal Devices, Percutaneous Approach (ICD-10-PCS; principal; 2019-07-05 10:00)
PROC: 4A023N7 Measurement of Cardiac Sampling and Pressure, Left Heart, Percutaneous Approach (ICD-10-PCS; 2019-07-05 10:00)
DX: I25.119 Atherosclerotic heart disease of native coronary artery with unspecified angina pectoris (principal); L76.32 Postprocedural hematoma of skin and subcutaneous tissue following other procedure; I10 Essential (primary) hypertension; E78.5 Hyperlipidemia, unspecified; Y83.9 Surgical procedure, unspecified as the cause of abnormal reaction of the patient, or of later complication, without mention of misadventure at the time of the procedure